=== PATIENT | female | born 1955 | race Caucasian/White ===

== ENCOUNTER 2020-09-28 08:00 | Outpatient (CLI) | payer BC | END 2020-09-28 23:59 | disposition home or self-care (01) | LOC: LAB.WCP 08:00 | PROVIDERS: ATTEND Physician Assistant | DX: M13.0 Polyarthritis, unspecified (principal); E03.9 Hypothyroidism, unspecified | CPT/HCPCS: 36415; 80053; 80061; 83036; 83721; 84443; 85025; 85651; 86038; 86200 ==

== ENCOUNTER 2020-10-07 13:34 | Outpatient (CLI) | payer MEDICARE, BC ==
--- NOTE | 2020-10-07 15:14 | CT Report ---
PROCEDURE: CHEST WO INDICATIONS: CHRONIC COUGH TECHNIQUE: Noncontrast 5 mm thick sections acquired from the pulmonary apices to the posterior costophrenic angl es. 7 mm thick coronal and sagittal MIP reformats were then acquired. For radiation dose reduction, the following was used: automated exposure control, adjustment of mA and/or kV according to patient size. COMPARISON: None. FINDINGS: Image quality: Excellent. Lungs and pleura: Scattered subsegmental scarring/atelectasis. There are diffuse subpleural ill-defi mildred reticular opacities, most notably within the left lung base. No honeycombing appearance. No acute consolidation. No pleural effusions or pneumothorax. Diffuse peribronchial cuffing suggestive of nonspecific bronchitis and/or reactive airways disease. Mediastinum: Heart size is normal. No pericardial effusion. No mediastinal adenopathy by size cri teria. Thoracic aorta and central pulmonary arteries are normal in size. Esophagus is normal in mili iber. No hiatal hernia. Bones and chest wall: Ill-defined 1.3 cm diameter right breast soft tissue attenuation focus is seen on image 21/30 which is technically indeterminate. No suspicious bony lesions. No vertebral body compression fractures. No axillary or supraclavicula r adenopathy by size criteria. The thyroid is normal in size. Abdomen: Visualized upper abdominal solid organs and bowel loops appear normal in the absence of con trast. IMPRESSION: Scattered subsegmental scarring/atelectasis. No acute consolidation. Nonspecific, round soft tissue attenuation focus involving the right breast as detailed above. This c ould represent dense fibroglandular tissue, although cannot exclude nodule and recommend correlation with mammograms and ultrasound as clinically warranted. Reviewed by: Jonathan Bliss MD on 10/07/2020 3:12 PM PST Approved by: Jonathan Bliss MD on 10/07/2020 3:12 PM PST Station ID: [id number]
== END 2020-10-07 13:35 | disposition home or self-care (01) ==
LOC: DI 13:34
PROVIDERS: ATTEND Physician Assistant
DX: R05 Cough (principal)

== ENCOUNTER 2020-10-27 08:00 | Outpatient (CLI) | payer BC ==
[2020-10-27 11:52] LABS: BASOPHILS # (AUTO) 0.1 10^3/uL (0.0-0.1); BASOPHILS % (AUTO) 0.9 %; EOSINOPHILS # (AUTO) 0.1 10^3/uL (0.0-0.7); EOSINOPHILS % (AUTO) 2.6 %; HGB - HEMOGLOBIN 14.2 g/dL (12.0-16.0); LYMPHOCYTES # (AUTO) 2.1 10^3/uL (1.5-3.5); LYMPHOCYTES % (AUTO) 40.5 %; MEAN CORPUSCULAR HEMOGLOBIN 30.7 pg (27.0-31.0); MEAN CORPUSCULAR HGB CONC 32.5 g/dL (32.0-36.0); MEAN CORPUSCULAR VOLUME 94.4 fL (81.0-99.0); MEAN PLATELET VOLUME 10.9 fL (7.9-10.8); MONOCYTES # (AUTO) 0.3 10^3/uL (0.0-1.0); MONOCYTES % (AUTO) 6.2 %; NEUTROPHILS # (AUTO) 2.6 10^3/uL (1.5-6.6); NEUTROPHILS % (AUTO) 49.2 %; PLT - PLATELET COUNT 180 10^3/uL (130-450); RED BLOOD COUNT 4.63 10^6/uL (4.20-5.40); RED CELL DISTRIBUTION WIDTH 13.3 % (12.0-15.0); WHITE BLOOD COUNT 5.3 x10^3/uL (4.8-10.8)
[2020-10-27 13:17] LABS: ALBUMIN/GLOBULIN RATIO 1.3 (1.0-2.2); ALKALINE PHOSPHATASE 64 IU/L (42-121); ALT ALANINE AMINOTRANSFERASE 25 IU/L (10-60); AST ASPARTATE AMINOTRANSFERASE 20 IU/L (10-42); BILIRUBIN,TOTAL 0.8 mg/dL (0.2-1.0); BUN - BLOOD UREA NITROGEN 27 mg/dL (6-20); CARBON DIOXIDE - CO2 24 mmol/L (21-32); CHLORIDE 101 mmol/L (101-111); CHOL/HDL RATIO 7.9 (<4.4); CHOLESTEROL 229 mg/dL; CREATININE 1.1 mg/dL (0.4-1.0); GLUCOSE 111 mg/dL (70-100); HDL CHOLESTEROL 29 mg/dL; LDL CHOLESTEROL,CALCULATED 166 mg/dL; LDL/HDL RATIO 5.7 (<4.4); TOTAL PROTEIN 7.1 g/dL (6.7-8.2); VLDL CHOLESTEROL 34 mg/dL
[2020-10-27 14:04] LABS: HEMOGLOBIN A1c% 5.9 % (4.27-6.07)
[2020-10-29 14:06] LABS: ANA SCREEN NEGATIVE (NEGATIVE)
== END 2020-10-27 23:59 | disposition home or self-care (01) ==
LOC: LAB.WCP 08:00
PROVIDERS: ATTEND Family Medicine
DX: M13.0 Polyarthritis, unspecified (principal); Z79.899 Other long term (current) drug therapy
CPT/HCPCS: 36415; 80053; 80061; 83036; 83721; 85025; 85651; 86038; 86200

== ENCOUNTER 2020-11-17 10:37 | Outpatient (CLI) | payer MEDICARE, BC ==
--- NOTE | 2020-11-18 14:14 | Mammography Report ---
BILATERAL DIGITAL DIAGNOSTIC MAMMOGRAM 3D/2D: 11/17/2020 CLINICAL: Family history of breast cancer. Patient returns for short term follow-up of a probably vicky ign mass in the right breast. Comparison is made to exams dated: 06/19/2016 mammogram, 10/05/2015 breast MRI, 12/26/2014 mammogram - [facility], and 10/07/2020 CT - [facility]. There are scattered fibroglandu lar elements in both breasts. There is a stable oval equal density focal asymmetry in the right breast at 3 o'clock anterior depth. This is seen in additional views and has been present since mammograms dating back to 2014. This c orrelates with right breast CT density described in recent report dated 10/07/2020. No other significant masses, calcifications, or other findings are seen in either breast. IMPRESSION: BENIGN The stable oval equal density focal asymmetry in the right breast is consistent with fibroglandular t issue and is benign as it has been present since 2014. There is no mammographic evidence of malignancy. A 1 year screening mammogram is recommended. Findings and recommendations were conveyed to the patient during today's evaluation. This exam was interpreted at Station ID: [id number]. NOTE: For mammograms, a report in lay terms will be sent to the patient. Approximately 15% of breast malignancies will not be visualized mammographically. In the management of a palpable breast mass, a negative mammogram must not discourage biopsy of a clinically suspicious lesion. Electronically Signed By: Trenton Elise M.D. aty/:11/17/2020 11:43:06 ACR BI-RADS Category 2: Benign Finding(s) 3342F PARENCHYMAL PATTERN: (A) - The breast(s) demonstrate(s) scattered fibroglandular densities. BI-RADS CATEGORY: (2) - 2 RECOMMENDATION: (ANNUAL) - Recommend routine annual screening mammography. [id number] 1 year screening LATERALITY: (B)
== END 2020-11-17 10:38 | disposition home or self-care (01) ==
LOC: DI 10:37
PROVIDERS: ATTEND Family Medicine
DX: D24.1 Benign neoplasm of right breast (principal); Z80.3 Family history of malignant neoplasm of breast